=== PATIENT | female | born 1945 | race Caucasian/White ===

== ENCOUNTER 2018-03-13 10:48 | Day surgery (SDC) | payer MEDICARE, OTHER, SELFPAY ==
--- NOTE | 2018-03-13 | EGD_PTH ---
PATIENT: DAVIN ARAIZA LOC: EN U#:[id number] AGE/SX: 72/F ROOM: RE03/13/[address]: Dr. Yumiko Ibarra MD : 1945 BED: DIS: 03/13/2018 SPEC #: [id number] RECD: 03/13/18 14:27 STATUS: LINDA RERegla #: [id number] LANDY: 03/13/18 00:[address]: Yumiko Ibarra DEPT: SURGICAL PATHOLOGY RECD BY: Héctor Becerra ENTERED: 03/13/18 14:28 SP TYPE: EGD BIOPSY OTHR DR: Dr. Wendy Winn MD Tissues: A - Duodenum, NOS B - Gastric mucous membrane C - Gastric mucous membrane Procedures: Special Stain Group II Surgery Specimen Level IV Alcian Blue/PAS (control) HEADER OPERATION: Colonoscopy, EGD ([facility]) PRE-OP DIAGNOSIS: Dyspepsia, nausea, altered bowel habits, history polyps TISSUE SUBMITTED: A - Second portion duodenum biopsy, B - Antral biopsy, C - GE junction biopsy MICROSCOPIC DIAGNOSIS A. Second portion of duodenum, biopsy: A fragment of small intestinal mucosa, no pathologic diagnosis. B. Antral biopsy: Mild gastritis. See microscopic description and comment. C. GE junction, biopsy: Fragments of gastroesophageal mucosa with acute and chronic inflammation. Intestinal metaplasia (goblet cell metaplasia) is not identified. See comment. SJ:berta 03/14/18 COMMENT B. The results of immunohistochemistry for Helicobacter pylori will be reported separately ([id number]). C. Alcian blue/PAS stain with matched control is used in the evaluation of the specimen. MICROSCOPIC DESCRIPTION Slides are reviewed. B. The specimen shows fragments of gastric mucosa with chronic inflammatory cell infiltrates in the lamina propria consisting of lymphocytes and plasma cells, consistent with mild chronic gastritis. GROSS DESCRIPTION A - Received in fixative is one container labeled with the patient's name and designated section portion duodenum biopsy. The specimen consists of one irregular fragment of light weaver soft tissue that measures 0.5 x 0.3 x 0.1 cm. The specimen is totally submitted in one cassette. B - Received in fixative is one container labeled with the patient's name and designated antral biopsy. The specimen consists of two irregular fragments of light weaver soft tissue that in aggregate measure 0.5 x 0.2 x 0.1 cm. The specimen is totally submitted in one cassette. C - Received in fixative is one container labeled with the patient's name and designated GE junction biopsy. The specimen consists of multiple irregular fragments of light weaver soft tissue that in aggregate measure 0.8 x 0.2 x 0.1 cm. The specimen is totally submitted in one cassette. / SJ:rg 03/13/18 TC:4 CPT: 64586 x3, [id number]
--- NOTE | 2018-03-13 | IMM_PTH ---
PATIENT: DAVIN ARAIZA LOC: EN U#:[id number] AGE/SX: 72/F ROOM: RE03/13/[address]: Dr. Yumiko Ibarra MD : 1945 BED: DIS: 03/13/2018 SPEC #: [id number] RECD: 03/14/18 11:31 STATUS: LINDA REQ #: [id number] LANDY: 03/13/18 00:[address]: Yumiko Ibarra DEPT: IMMUNOHISTOCHEMISTRY RECD BY: Chiquita Cobb ENTERED: 03/14/18 11:33 SP TYPE: IMMUNO OTHR DR: Dr. Wendy Winn MD Tissues: B - Stomach, NOS Procedures: H Pylori (initial) PHYSICIAN & INSTITUTION [place] [id number] SPECIMEN INFORMATION: Tissue Source: B - Antral biopsy Clinical Info: Dyspepsia, nausea, altered bowel habits, history polyp Specimen Number: [id number] CPT code: 80867 METHODOLOGY: Deparaffinized sections of prefer/formalin-fixed tissue or PAP/DQ stained slides are incubated with monoclonal/polyclonal antibodies/oligonucleotide probes. Localization is made via biotin free immunoperoxidase method. Appropriate controls are performed and reacted as expected. Results on target cell population are indicated in the following table: RESULTS: ANTIBODY / CLONE RESULT Block B H Pylori (polyclonal) negative These tests were developed and their performance characteristics determined by [facility]. They may not have been cleared or approved by the U.[place]. Food and Drug Administration. The FDA has determined that such clearance or approval is not necessary. INTERPRETATION: B. Antral biopsy: Negative for Helicobacter pylori organisms. SJ:berta 03/14/18
[2018-03-13 11:16] VITALS: BP 151/100; PULSE 81; RESP 18; TEMP 36.6; O2SAT 99; BMI 24.9
[2018-03-13 11:30] LABS: Bedside Glucose 95 mg/dL (70-110)
[2018-03-13 12:41] VITALS: BP 137/74; BP 151/100; PULSE 75; RESP 16; TEMP 36.2; O2SAT 95
--- NOTE | 2018-03-13 12:42 | OP.PCM_ITS ---
Report of Operation Date of Procedure: 03/13/18 Pre-Operative Diagnosis: dyspepsia, history of colon polyp - tubular adenoma 2011 Post-Operative Diagnosis: same Surgery/Procedure Performed:: esophagogastroduodenoscopy with biopsies. colonoscopy Description of Surgical Findings:: no ulcers or masses noted, large hiatal hernia with sliding component. Type of Anesthesia:: MAC Anesthesiologist: Thompson Lawson Specimen's removed: mucosal biopsies of second portion of duodenum and antral stomach and GE junction Estimated Blood Loss (mL): minimal Fluids Replaced: see anesthesia note Description of Procedure: After informed consent was given, the patient was brought to the endoscopy suite and placed in the upright sitting position. Appropriate time out protocol was followed. Appropriate cardiac, blood pressure, and pulse oximetry monitoring was placed. After stable vital signs were noted, the patient was given intravenous conscious sedation. The posterior pharynx was sprayed with lidocaine spray times two and a bite block was placed. The patient was then placed in the left lateral decubitis position. The upper endoscope was lubricated and inserted into the patient?s mouth and then carefully placed into the patient?s throat. The patient was asked to swallow and the endoscope was t hen easily advanced into the patient?s esophagus. The endoscope was further advanced down into the patient?s stomach, then past the pylorus, then past the duodenal bulb and then to the second portion of the duodenum. There were no lesions noted in the duodenum - first and second portion. Because of the patient's complaint of dyspepsia, mucosal biopsies were taken with cold grasper forceps for evaluation. The endoscope was retracted back into the stomach. No ulcers or masses were noted in the stomach. Retroflex view into the body and fundus of the stomach revealed a large hiatal hernia. The endoscope was retracted into the esophagus and there appeared to be a sliding component to the hiatal hernia -2-3 cm in length. The GE junction was minimally irregular - there was no creeping of salmon colored mucosa, however. Biopsies were taken using cold grasper forceps. No masses or ulcers were noted in the esophagus. The upper endoscope was removed intact. Patient tolerated this portion of the procedure well. The next procedure done was the colonoscopy. The colonoscope was lubricated and carefully inserted into the patient?s anus. It was then advanced into the rectum, then into the sigmoid colon, then into the left descending colon, past the splenic flexure, into the transverse colon, past the hepatic flexure, then down into the right descending colon and into the cecum. The cecum was identified by: transillumination, confluence of the tenae coli, identification of the ileocecal valve and appendiceal orifice, and external pressure with indentation. At this point, the colonoscope was slowly retracted back and the entire colonic mucosa was examined. There was no evidence of extrinsic compression and no inflammatory changes were noted. The colon cleansing preparation was adequate.. No intraluminal obstructing lesions, no strictures, and no ulcers were noted. Retroflex view in the rectum revealed no lesions in the rectal vault except for hemorrhoidal changes. The colonoscope was removed intact. Patient tolerated procedure well. Recommendations: screening colonoscopy in 10 years - Complications none noted
[2018-03-13 12:45] VITALS: BP 141/78; BP 151/100; PULSE 74; RESP 16; O2SAT 95
[2018-03-13 12:50] VITALS: BP 137/78; BP 151/100; PULSE 70; RESP 16; O2SAT 98
[2018-03-13 12:55] VITALS: BP 135/75; BP 151/100; PULSE 70; RESP 16; TEMP 36.2; O2SAT 100
== END 2018-03-13 13:42 | disposition home or self-care (01) ==
LOC: EN 10:48 → AC 10:58
PROVIDERS: Family Provider Internal Medicine; PCP Internal Medicine; Referring Provider Surgery; Visit Provider Surgery
PROC: 0DJD8ZZ Inspection of Lower Intestinal Tract, Via Natural or Artificial Opening Endoscopic (ICD-10-PCS; CPT 45378; principal; 2018-03-13 11:55)
DX: K21.0 Gastro-esophageal reflux disease with esophagitis (principal); K29.70 Gastritis, unspecified, without bleeding; K44.9 Diaphragmatic hernia without obstruction or gangrene; R11.0 Nausea; M19.90 Unspecified osteoarthritis, unspecified site; F32.9 Major depressive disorder, single episode, unspecified; E11.9 Type 2 diabetes mellitus without complications; J45.909 Unspecified asthma, uncomplicated; I10 Essential (primary) hypertension; E55.9 Vitamin D deficiency, unspecified; Z86.010 Personal history of colon polyps; Z79.2 Long term (current) use of antibiotics; Z79.82 Long term (current) use of aspirin; Z79.51 Long term (current) use of inhaled steroids; Z79.891 Long term (current) use of opiate analgesic; Z79.899 Other long term (current) drug therapy
CPT/HCPCS: 43239; 45378; 82962; 88305; 88313; 88342; J7120

== ENCOUNTER 2020-10-09 12:55 | Outpatient (RCR) | payer MEDICARE, SELFPAY ==
--- NOTE | 2020-10-10 07:50 | HP.OTFCE_ITS ---
Floor (Occasional 1-33% of Day): 30# Floor (Frequent 34-66% of Day): 15# Floor (Constant 67-100% of Day): 6# Floor PDL: Light Knee (Occasional 1-33% of Day): 30# Knee (Frequent 34-66% of Day): 15# Knee (Constant 67-100% of Day): 6# Knee PDL: Light Waist (Occasional 1-33% of Day): 25# Waist (Frequent 34-66% of Day): 12# Waist (Constant 67-100% of Day): na Waist PDL: Light Shoulder (Occasional 1-33% of Day): 15# Shoulder (Frequent 34-66% of Day): 8# Shoulder PDL: Sedentary-Light Overhead (Occasional 1-33% of Day): 10# Overhead (Frequent 34-66% of Day): NA Overhead (Constant 67-100% of Day): NA Overhead PDL: Sedentary Bending: Frequent Ability (34-66% of day) Squatting: Occasional Ability (1-33% of day) Kneeling: No Ablility (0% of day) Reaching out: Frequent Ability (34-66% of day) Reaching up: Frequent Ability (34-66% of day) Sitting: Frequent Ability (34-66% of day) Walking: Frequent Ability (34-66% of day) Standing: Frequent Ability (34-66% of day) Duration Sedentary Sedentary Light Light Light Medium Medium Medium Heavy Very Heavy Heavy Occasional (0-33% of day) Frequent (34-66% of day) Constant (67-100% of day) 10 # Negligible Negligible 15 # 8 # Negligible 20 # 10# Negli. 35 # 18 # 7 # 50 # 25 # 10 # 75 # 100 # >100 # 38 # 50 # >50 # 15 # 20 # >20 # Weight:: 67.585 kg Hand Dominance: right Medical History Including Restrictions: This 75 year old female reports she is in fair health. states she has some back pain due to left side sciatica. Pt states she does see a pain mt. but missed an apt due to being sick and was told she was no longer a pt. Pt will look for new pain mtg. Pt states she has had Asthma for some time but states this is controlled with medication. pt dx with DMII but states this is controlled as well- pt current medications are Aspirin, calcium carbonate, Vit. D, Gabapentin, NORCO, Mobic, Zoloft and Zocor. pt states she does have pain with her daily work tasks but she does not let that stop her from getting her job duties completed. Anemic. left side back pain. Left side sciatica Diagnoses: Asthma. left back pain. left sciatica. Reflux. HTN. osteoporosis. DMII Symptoms: dizziness. left side back pain. leg pain. feet tingle and burn Pain: pt states she is not to painful now. states pain is intermittent. pt states while working she may have pain with tasks as bending forward gathering trash but pain goes away after the task is done- pt states pain in manageable while she is working. 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 pt states when she bends over this does cause some pain in her back. pt states her back hurts and she gets dizzy at times but this goes away after she stands up straight and continues her job tasks. pt states she just recently decreased her hours from 5x week down to 2 days a week. pt states she does push a cart and use the rails when walking at work- pt states this does help her keep her balance. 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 pt states her granddaughter who is 35 lives with her. pts granddaughter does work 5 days a week or more. pt states both her and her granddaughter do the cleaning, cooking and laundry. pt states granddaughter does mow the grass. Pt does drive and both go to the grocery store. pt states she does walk her dog about a mile on days that the weather is nice. ROM: pt demo ROM WNL- Strength: pt demo good functional UB and LB strength at 4+/5 grossly throughout. this is above average for her age group. Right City Clerk Strength Average: 51.66 Left City Clerk Strength Average: 46.66 Right Lateral Pinch Average: 9.33 Left Lateral Pinch Average: 14.00 Right Tripod Pinch Average: 16.00 Left Tripod Pinch Average: 16.00 Comments: digital sales planner and pinch percentages were not included in this report as her age is above 65 years of age-this is end rage age for strength comparison. heart rate 78. reports no pain Sensation: denies Fine Motor: denies Balance: no loss of balance during assessment Bending: Pt demonstarted the ability to bend forward 3x 10x and 10x rapidly. pt demo with good ability. pt can bend forward on a frequent ability. Squatting: Pt demonstrated the ability to squat 3x 10x and 10x rapidly with good ability. pt can band forward on a frequent ability. pt states she feels her joints cracking and popping. Kneeling: pt demonstrated the ability kneel one time with heavy use of external support - no ability to kneel Reaching out/up: pt demonstrated the ability to complete reaching out/up while standing 3x, 10x, 10 x rapidly. pt can reach out/up on a frequent ability Walking: pt walks about a mile a day after she works an 8 hour shift. pt states she likes to walk her dog each day weather permitting. Pt demonstrated a fast pace reciprocal step pattern- no noted loss of balance during ambulation. pt can walk on frequent ability. Standing: pt demonstrated the ability to stand 8min shifting her body weight - pt can stand on a frequent ability. Sitting: pt demo the ability to sit for 20+ min with no expressed or apparent discomfort- pt does state if she would sit for 60 min she states it is harder to get up because of her pain. pt can sit on a frequent ability with given opportunities to shift weight. Climbing Stairs: pt demonstrated the ability to ascend ten steps with a reciprocal step pattern with use of one handrail. pt demo the ability to descend ten steps with a right foot step down pattern with use of one handrail. pt demo good safety with this task. Floor Lift: pt demonstrated the ability to lift 30# maximally from floor level with narrow foot placement and fair lifting mechanics. therapist did give verbal cues to widen her feet to get better base of support pt able to do so. Knee Lift: pt demonstrated the ability to lift 30# maximally from knee level with narrow foot placement and fair lifting mechanics. therapist did give verbal cues to widen her feet to get better base of support pt able to do so. Waist Lift: pt demonstrated the ability to lift 25# maximally from this level with good lifting mechanics. Shoulder Lift: pt demonstrated the ability to lift 15# maximally from this level with good lifting mechanics. Overhead Lift: pt demonstrated the ability to lift 10# maximally from this level with good lifting mechanics. Carrying: pt demonstrated the ability to carry 15# for 30 feet with use of both UE for carry with good ability- no noted LOB. Comments: push pull with sled- with 50# pt reports that the sled did weight much more than the cart she pushes at work- pt did well with task-. pt states she feels good following assessment. pt does state she had some pain 3/10 but able to work through it. pt demo good ability for her age
--- NOTE | 2020-10-10 07:50 | HP.OTFCE.D ---
FCE D/C Summary - Discharge DAVIN ARAIZA was seen for a one time visit for an FCE on 10/09/20 and is discharged.
== END 2020-10-09 19:00 | disposition home or self-care (01) ==
LOC: OT 12:55
PROVIDERS: PCP Internal Medicine; Referring Provider Clinical Nurse Specialist; Visit Provider Clinical Nurse Specialist
DX: J45.909 Unspecified asthma, uncomplicated (principal); Z91.89 Other specified personal risk factors, not elsewhere classified; M54.32 Sciatica, left side
CPT/HCPCS: 97750